=== PATIENT | male | born 1975 | race Caucasian/White ===

== ENCOUNTER → 2018-11-28 16:45 | Outpatient (CLI) | payer OTHER, SELFPAY ==
[2018-11-18 15:08] VITALS: BMI 20.9
--- NOTE | 2018-11-28 17:06 | MRI_ITS ---
STUDY: MRI LEFT KNEE REASON FOR EXAM: Male, 43 years old. Pain. Fall. TECHNIQUE: Standardized fat and water weighted pulse sequences were obtained in all 3 orthogonal planes. COMPARISON: None. FINDINGS: Normal medial meniscus. Normal hyaline cartilage of the medial femorotibial compartment. Normal medial femoral condyle and tibial plateau. Normal medial collateral ligamentous complex (MCL). Normal distal semimembranosus, gracilis and semitendinosus tendons. Normal lateral meniscus. Normal hyaline cartilage of the lateral femorotibial compartment. Normal lateral femoral condyle and tibial plateau. Normal proximal tibiofibular articulation. Normal lateral collateral (fibular) ligament. Normal popliteus tendon. Normal biceps femoris tendon. Normal anterior cruciate ligament (ACL). Normal posterior cruciate ligament (PCL). Normal congruent patellofemoral articulation. Normal hyaline cartilage of the patellofemoral compartment. Normal medial and lateral patellar retinaculum. Normal quadriceps tendon. Normal patellar tendon. Normal Hoffa's fat pad. There is no joint effusion. The soft tissues are unremarkable. The otherwise visualized osseous structures are unremarkable. MRI/Lower Ext Joint Only (Routine) IMPRESSION: Normal MRI of the knee. No ligamentous or meniscal tear. Electronically Signed: Raymon Powell MD at 9:01 EDT , Service support ,
== END ==
PROVIDERS: Referring Provider Physician Assistant Surgical; Visit Provider Physician Assistant Surgical
DX: S83.92XA Sprain of unspecified site of left knee, initial encounter (principal); X58.XXXA Exposure to other specified factors, initial encounter; Y93.9 Activity, unspecified; Y92.9 Unspecified place or not applicable; Y99.9 Unspecified external cause status
CPT/HCPCS: 73721

== ENCOUNTER → 2023-02-17 | Outpatient (CLI) | payer OTHER, SELFPAY ==
--- NOTE | 2023-02-17 | MRI_ITS ---
EXAM: MR RIGHT LOWER EXTREMITY WITHOUT INTRAVENOUS CONTRAST, KNEE CLINICAL INDICATION: contusion rt knee, pain, and quot;clicking and quot; TECHNIQUE: Multiplanar and multisequence MR images of the right knee without intravenous contrast. COMPARISON: No relevant prior studies available. FINDINGS: BONES/JOINTS: Anterior lateral tibial plateau edema with thin linear hypointense T1 signal at the medial margin of the lateral tibial plateau perhaps an indicating severe contusion and/or microtrabecular fracture. No synovial hypertrophy. No intra-articular body. EXTENSOR MECHANISM: No significant abnormality. MEDIAL MENISCUS: No significant abnormality. LATERAL MENISCUS: No significant abnormality. MEDIAL CAPSULE/SUPPORTING STRUCTURES: No significant abnormality. Intact. LATERAL CAPSULE/SUPPORTING STRUCTURES: No significant abnormality. Lateral collateral ligamentous complex, inclusive of the popliteal tendon, are intact. ANTERIOR CRUCIATE LIGAMENT: No significant abnormality. Intact. POSTERIOR CRUCIATE LIGAMENT: No significant abnormality. Intact. MUSCLES: No significant abnormality. CARTILAGE: No significant abnormality. Intact. FLUID: No significant abnormality. No joint effusion. OTHER SOFT TISSUES: Mild anterior soft tissue swelling. No popliteal cyst. MRI/Lower Ext Joint Only (Routine) IMPRESSION: 1. Anterior lateral tibial plateau edema with thin linear hypointense T1 signal at the medial margin of the lateral tibial plateau perhaps an indicating severe contusion and/or microtrabecular fracture. Correlate with mechanism of injury. 2. Mild anterior soft tissue swelling. No additional acute abnormality is identified. Electronically Signed: Guido Jorgensen DO at 10:10 EDT ,
== END | disposition home or self-care (01) ==
LOC: MRI 09:00
PROVIDERS: Referring Provider Physician Assistant Surgical; Visit Provider Physician Assistant Surgical
DX: S80.01XA Contusion of right knee, initial encounter (principal); X58.XXXA Exposure to other specified factors, initial encounter
CPT/HCPCS: 73721

== ENCOUNTER → 2023-06-07 | Outpatient (CLI) | payer OTHER, SELFPAY ==
[2023-06-07 09:23] LABS: Bacteria 0 SEEN /hpf (None Seen); Mucous, Urine 0 SEEN /hpf (<or=2+); Red Blood Cells-Urine 0 SEEN /hpf (0-5); Squamous Epithelial Cells - UA 0 SEEN /hpf (0-5); White Blood Cells 0 SEEN /hpf (0-5)
[2023-06-07 10:03] LABS: Color, Urine Yellow (Yellow); Glucose, Dipstick Normal (Normal); Ketone-Dipstick Negative (Negative); Leukocyte Esterase-Dipstick Negative /ul (Negative); Nitrite-Dipstick Negative (Negative); Occult Blood-Urine Negative /ul (Negative); Protein-Dipstick Negative (Negative); Specific Gravity, Urine 1.015 (1.002-1.030); Urine Bilirubin Dipstick Negative (Negative); Urine Clarity Clear (Clear); Urine Urobilinogen Normal (Normal)
[2023-06-07 10:11] LABS: Absolute Lymphocyte Count 2.53 X10^3/uL (0.83-4.51); Absolute Neutrophil Count 4.2 X10^3/uL (2.0-7.7); Basophil# 0.05 X10^3/uL; Basophil% 0.6 % (0-1); Eosinophil# 0.69 X10^3/uL; Eosinophils% 8.4 % (0-5); Hematocrit 47.4 % (40-54); Hemoglobin 15.5 g/dL (13.0-16.5); Lymphocyte # 2.53 X10^3/ul (0.83-4.51); Lymphocyte % 30.8 % (19-41); Mean Corp Hgb Conc 32.7 g/dL (32-36); Mean Corpuscular Hgb 30.3 pg (27.0-32.0); Mean Corpuscular Volume 92.8 fL (80-94); Mean Platelet Vol. 11.8 fl (6.2-12.0); Monocyte# 0.69 X10^3/uL; Monocyte% 8.4 % (0-10); NRBC Flagged by Analyzer 0 % (0-5); Neutrophil # 4.22 X10^3/uL (2.7-7.7); Neutrophil % 51.4 % (47-70); Platelet Count 279 K/mm3 (150-450); RBC Distribution Width CV 12.7 % (11.6-14.6); RBC Distribution Width SD 43.6 fl (35.1-43.9); Red Blood Count 5.11 M/mm3 (4.6-6.2); White Blood Count 8.2 K/mm3 (4.4-11.0)
[2023-06-07 10:41] LABS: ALB/GLOB Ratio 1.2 RATIO (0.9-2.4); AST(SGOT) 16 U/L (15-37); Alanine Aminotransfer ALT/SGPT 25 U/L (16-61); Albumin, Serum 3.8 g/dL (3.2-5.0); Alkaline Phosphatase 63 U/L (45-117); Anion Gap 3 (5-15); BUN 11 mg/dL (7-18); BUN/Creat Ratio 11.9 RATIO (10-20); Calcium,Total 9.3 mg/dL (8.5-10.1); Chloride 108 mmol/L (98-107); Cholesterol 166 mg/dL (200); Creatinine, Serum 0.92 mg/dL (0.70-1.30); EST Glomerular Filtration Rate 93 mL/min (>60); Est Glom Filt Rate - Afr Amer 113 mL/min (>60); Globulin 3.1 g/dL (2.2-4.2); Glucose 83 mg/dL (74-106); High Density Lipoprotein 41 mg/dL; Potassium 3.9 mmol/L (3.5-5.1); Protein, Total 6.9 g/dL (6.4-8.2); Sodium Level 140 mmol/L (136-145); Thyroid Stim Hormone (TSH) 1.37 uIU/mL (0.358-3.74); Triglycerides 103 mg/dL; Very Low Density Lipoprotein 21 mg/dL (5-40)
[2023-06-08 15:08] LABS: Thyroglobulin Antibody < 1.0 IU/mL (0.0-0.9); Thyroid Peroxidase AB < 9 IU/mL (0-34)
== END | disposition home or self-care (01) ==
LOC: MFPLAB 09:20
PROVIDERS: Visit Provider Family Medicine
DX: E04.1 Nontoxic single thyroid nodule (principal)
CPT/HCPCS: 36415; 80053; 80061; 81001; 84439; 84443; 85025; 86376; 86800

== ENCOUNTER → 2023-06-08 | Outpatient (CLI) | payer OTHER, SELFPAY ==
--- NOTE | 2023-06-08 15:17 | US_ITS ---
INDICATION: nodule EXAMINATION: Ultrasound US Thyroid (eg thyroid, parathyroid, parotid) TECHNIQUE: Toussaint scale and color doppler imaging was performed of the thyroid gland. COMPARISON: No relevant prior comparison study available FINDINGS: RIGHT THYROID LOBE: 5.1 x 1.6 x 1.5 cm, volume 6.1 mL. Parenchyma: The gland echotexture is homogenous. Thyroid vascularity is normal. LEFT THYROID LOBE: 4.8 x 1.5 x 1.3 cm, volume 4.8 mL. Parenchyma: The gland echotexture is homogenous. Thyroid vascularity is normal. ISTHMUS: 0.2 cm in maximum AP dimension. Estimated total number of nodules greater than equal to 1 cm: 1. Multiple subcentimeter colloid cysts seen in the left lobe. Vineyard Tender nodules are described as follows: 1. Location: Right lower Size: 1.1 x 1 x 0.7 cm, volume 0.4 mL. Nodule characteristics: Composition: Cystic or almost completely cystic (0). There is a peripheral calcification present. Echogenicity: Anechoic (0). ACR TI-RADS total points: 0. ACR TI-RADS category: 1. LYMPH NODES: No lymphadenopathy is seen in the tissue surrounding the thyroid gland. US/Head/Neck Soft Tissue IMPRESSION: Right thyroid lobe cyst with associated calcification. No specific follow-up recommended. ACR TI-RADS RECOMMENDATION REFERENCE: Ultrasound-guided fine-needle aspiration, follow-up ultrasound, no further follow-up. *TR 1 (0 points) and TR 2 (2 points): No FNA or follow-up. *TR 3 (3 points): FNA if more than or equal to 2.5 cm in maximum dimension. Follow-up ultrasound in 1, 3, and 5 years if 1.5 to 2.4 cm in maximum dimension. *TR 4 (4-6 points): FNA if more than or equal to 1.5 cm in maximum dimension. Follow-up ultrasound in 1, 2, 3, and 5 years if 1 to 1.4 cm in maximum dimension. *TR 5 (more than or equal to 7 points): FNA if more than or equal to 1 cm in maximum dimension. Follow-up ultrasound every year for 5 years if 0.5 to 0.9 cm in maximum dimension. *TR 3, TR 4, or TR 5 nodules that are below the size threshold for follow-up receive no follow-up. Electronically Signed: Milind Messer MD at 0:41 EST ,
== END | disposition home or self-care (01) ==
LOC: US 15:16
PROVIDERS: PCP Family Medicine; Referring Provider Family Medicine; Visit Provider Family Medicine
DX: E04.1 Nontoxic single thyroid nodule (principal)
CPT/HCPCS: 76536

== ENCOUNTER → 2024-01-15 | Outpatient (CLI) | payer OTHER, SELFPAY ==
--- NOTE | 2024-01-15 10:45 | LES_PTH ---
PATIENT: MARCI JACOB LOC: [facility] U#:[id number] AGE/SX: 48/M ROOM: RE01/15/[address]: Dr. Maxim Payan MD : 1975 BED: DIS: 01/15/2024 SPEC #: [id number] RECD: 01/16/24 07:18 STATUS: SCARLET MARIANO #: [id number] DEBBIE: 01/15/24 10:[address]: Maxim Payan DEPT: SURGICAL PATHOLOGY RECD BY: Yasmeen Juarez ENTERED: 01/16/24 07:19 SP TYPE: Lesion OTHR DR: Dr. 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 Negative for malignancy. See comment. / 01/17/2024 COMMENT Special stain for fungi is positive for organisms (yeast and pseudohyphae), consistent with Amber species; matched controls is appropriate. Clinical correlation and appropriate follow up are necessary. Case has been reviewed in consultation with Dr. Horan who concurs with the above diagnosis. IDC:AM MICROSCOPIC DESCRIPTION Slides are reviewed. GROSS DESCRIPTION Received in fixative is one container labeled with the patient's name and designated Left buccal leukoplakia. The specimen consists of a piece of sanchez-brown mucosal tissue measuring 0.2 x 0.1 x 0.1cm. The entire specimen is submitted in one cassette. [facility] 01/16/2024 TC:3 CPT:37397,99216
== END | disposition home or self-care (01) ==
LOC: LABSPEC 15:24
PROVIDERS: PCP Family Medicine; Referring Provider Otolaryngology; Visit Provider Otolaryngology
DX: K13.21 Leukoplakia of oral mucosa, including tongue (principal)
CPT/HCPCS: 88305

== ENCOUNTER → 2024-03-03 | Outpatient (CLI) | payer OTHER, SELFPAY ==
--- NOTE | 2024-03-03 08:24 | MRI_ITS ---
EXAM: MR RIGHT LOWER EXTREMITY WITHOUT INTRAVENOUS CONTRAST, KNEE CLINICAL INDICATION: pain, INJURY X 1YR TECHNIQUE: Multiplanar and multisequence MR images of the right knee without intravenous contrast. COMPARISON: February 17, 2023 and February 04, 2024 FINDINGS: BONES/JOINTS: Unremarkable. No fracture. No abnormal bone marrow signal. No synovial hypertrophy. No intra-articular body. EXTENSOR MECHANISM: Unremarkable. MEDIAL MENISCUS: Unremarkable. LATERAL MENISCUS: Unremarkable. MEDIAL CAPSULE/SUPPORTING STRUCTURES: Unremarkable. Intact. LATERAL CAPSULE/SUPPORTING STRUCTURES: Unremarkable. Lateral collateral ligamentous complex, inclusive of the popliteal tendon, are intact. ANTERIOR CRUCIATE LIGAMENT: Unremarkable. Intact. POSTERIOR CRUCIATE LIGAMENT: Unremarkable. Intact. MUSCLES: Unremarkable. CARTILAGE: Unremarkable. Intact. FLUID: Unremarkable. No joint effusion. OTHER SOFT TISSUES: Unremarkable. No popliteal cyst. MRI/Lower Ext Joint Only (Routine) IMPRESSION: No significant internal derangement of the knee. Electronically Signed: Deshawn Lee MD at 21:27 EDT ,
== END | disposition home or self-care (01) ==
LOC: MRI 14:09
PROVIDERS: PCP Family Medicine; Referring Provider Orthopaedic Surgery Sports Medicine; Visit Provider Orthopaedic Surgery Sports Medicine
DX: M25.561 Pain in right knee (principal)
CPT/HCPCS: 73721

== ENCOUNTER 2024-05-17 21:30 | Emergency (ER) | payer OTHER, SELFPAY ==
[2024-05-17 21:31] VITALS: BP 126/84; PULSE 89; RESP 18; TEMP 36.5; O2SAT 98; BMI 23.4
--- NOTE | 2024-05-17 22:28 | EX.ED.DYSGE1 ---
HPI History of Present Illness Chief Complaint: Head Injury Informant: patient and spouse/S.O. Narrative Narrative: Patient is a 49-year-old male with no significant past medical history. He states he he struck the left side of his head on a post that he was trying to put on the ground using a post acute care nurse practitioner. He denied any loss of consciousness following the trauma and he denies any history of bleeding disorder or blood thinner use. He states that there is been no real headache change in vision light sensitivity or nausea and vomiting since the trauma. He reports he went to an outside ER where they updated his tetanus and just glued the area. He states he still has had some mild intermittent bleeding and secondary to this comes in for evaluation [facility] Medical History Right knee pain Hordeolum externum left lower eyelid Contact with and (suspected) exposure to other viral communicable diseases URI (upper respiratory infection) Home Medications ?Medication ?Instructions ?Recorded ?Last Taken ?Type fexofenadine 180 mg tablet 180 mg PO Q24H #30 tabs 10/29/17 Unknown Rx ([facility]le Allergy) sulfamethoxazole 800 1 tab PO BID 7 days #14 tabs 05/17/24 Unknown Rx mg-trimethoprim 160 mg tablet (Bactrim DS) Allergy/AdvReac Type Severity Reaction Status Date / Time amoxicillin (From Augmentin) Allergy Upset Verified 05/17/24 21:30 Stomach clavulanic acid (From Allergy Upset Verified 05/17/24 21:30 Augmentin) Stomach Social History Smoking Status: Current every day smoker tobacco type: cigarettes ROS ROS ED Constitutional Constitutional ED: Denies chills or fever(s) Eyes Eyes: Denies blurry vision, change in vision or diplopia ENT ENT ED: Denies sore throat Cardiovascular Cardiovascular: Denies chest pain Respiratory/Chest Respiratory/Chest: Denies cough or dyspnea Gastrointestinal Gastrointestinal: Denies abdominal pain, diarrhea, nausea or vomiting Genitourinary Genitourinary ED: Denies dysuria Musculoskeletal Musculoskeletal: Denies neck pain Integumentary Reports other Details: Positive scalp laceration Neurologic Neurologic: Denies headache(s), paresthesias or weakness Hematologic/Lymphatic Hematologic/Lymphatic: Denies easy bleeding or easy bruising EXAM Physical Exam Const Vital Signs: 05/17/24 21:31 05/17/24 21:58 Temperature 97.7 F L Temperature Source Temporal Pulse Rate 89 Respiratory Rate 18 Respiratory Effort Normal Non-Labored Respiratory Depth Normal Respiratory Pattern Normal Blood Pressure 126/84 H Blood Pressure Mean 98 Pulse Ox 98 Oxygen Delivery Method Room Air Room Air Positive well nourished and well developed General Appearance ED: well developed HEENT HEENT Narrative: Patient has an apparent 2.5 cm linear left parietal scalp laceration covered in Dermabond consistent with his report from earlier. There is a trace amount of blood protruding from the anterior aspect. Otherwise no signs of depressed or basilar skull fracture Eyes PERRL and EOMs intact bilaterally Eyes Narrative: No hyphema Neck supple Neck Narrative: No bony deformity or step-off of the cervical spine no midline tenderness to palpation Resp normal respiratory effort and clear to auscultation bilaterally Cardio regular rate and regular rhythm Extremity normal to inspection Neuro oriented x3, CN's II-XII intact bilaterally and no sensory deficits noted Sensorium / Orientation: alert Motor Exam: strength 5/5 throughout Psych mental status grossly normal Skin Skin Narrative: Scalp laceration as documented above No surrounding erythema or warmth no lymphangitic streaking or purulent discharge noted from the laceration MDM MDM MDM Narrative Medical decision making narrative: Patient arrived to the ER roughly 10 hours after the time of trauma. He had already been seen in another emergency department and had the wound Dermabond and his tetanus status was updated. He does not have a history of bleeding disorder or blood thinner use he is not complaining of change in vision headache light sensitivity nausea vomiting and states has been no change in mental status. Therefore my concern for underlying concussion versus traumatic skull fracture versus traumatic subarachnoid or subdural hemorrhage is low. I did discuss potential head CT with the patient and spouse but with are low concern for underlying trauma to the do not want a image obtained. The patient had the small amount of blood removed using a wash rag and chlorhexidine. After the small amount of blood from the anterior aspect of the wound was removed there is no further bleeding. I discussed with patient that I typically would have put naina into the scalp but as the wound is already been covered with Dermabond I do not feel it appropriate to try and remove this as it would cause undue pain and repeat bleeding. As the wound is not continuing to ooze blood from the small amount that was removed in the ER and we have low concern for underlying trauma or infection there is no need for further workup and he is otherwise safe for discharge History & Record Review Discussion w/independent historian: Patient and Significant other Discharge Plan Triage Chief Complaint: Head Injury ED Provider: Deshawn Kowalski Dx/Rx/DC Orders Clinical Impression: Laceration of scalp, Head injury Instructions: ED Head Injury (Adult), ED Laceration, Skin Adhesive Prescriptions: New sulfamethoxazole-trimethoprim [Bactrim DS] 800-160 mg tablet 1 tab PO BID 7 Days Qty: 14 0RF No Action fexofenadine [Danielle Allergy] 180 mg tablet 180 mg PO Q24H Qty: 30 6RF Primary Care Provider: Raymundo Smalls Referrals: Raymundo Smalls MD [Primary Care Provider] - Activity Restrictions/Additional Instructions: If you develop intractable headache bouts of nausea and vomiting or change in mental status then you will need to return to the hospital for repeat evaluation and head CT. If you develop surrounding redness or purulent discharge there is concern for infection then you may need to fill and take the Bactrim which was prescribed from the ER tonight. If you have any further concerns or worsening symptoms please return to the ER for repeat evaluation Print Language: Micronesian Disposition Disposition: Home, Self Care Discharge Date/Time: 05/17/24 22:38
== END 2024-05-17 22:38 | disposition home or self-care (01) ==
PROVIDERS: Emergency Provider Emergency Medicine; PCP Family Medicine; Visit Provider Emergency Medicine
DX: S01.01XA Laceration without foreign body of scalp, initial encounter (principal); W22.09XA Striking against other stationary object, initial encounter; F17.210 Nicotine dependence, cigarettes, uncomplicated
CPT/HCPCS: 99283

== ENCOUNTER → 2024-10-23 | Outpatient (CLI) | payer OTHER, SELFPAY ==
--- NOTE | 2024-10-23 10:09 | RAD_ITS ---
PROCEDURE: KNEE 4 OR MORE VIEWS 10/23/2024 REASON FOR EXAM: RIGHT KNEE STRAIN TECHNIQUE: 4 view(s) of the right knee knee COMPARISON: Right knee series of 02/04/2024. RAD/Knee 4 or More Views IMPRESSION: No right knee joint effusion is seen. No significant arthritic process or joint narrowing is evident. Satisfactory o sseous alignment is seen throughout. No fracture site is evident. Reading Location: [place] [id number]
== END | disposition home or self-care (01) ==
LOC: MTRAD 10:08
PROVIDERS: PCP Family Medicine; Referring Provider Physician Assistant Surgical; Visit Provider Physician Assistant Surgical
DX: S86.911A Strain of unspecified muscle(s) and tendon(s) at lower leg level, right leg, initial encounter (principal)
CPT/HCPCS: 73564

== ENCOUNTER → 2024-11-04 | Outpatient (CLI) | payer OTHER, SELFPAY ==
--- NOTE | 2024-11-04 10:22 | MRI_ITS ---
PROCEDURE: LOWER EXT JOINT ONLY (ROUTINE) 11/04/2024 REASON FOR EXAM: PAIN TECHNIQUE: T1, T2, PD, MRI of the right knee. Multiplanar and multisequence images were obtained without IV contrast administration. COMPARISON: COMPARISON : October 23, 2024 x-ray FINDINGS: Anterior and posterior cruciate ligaments appear intact. The medial and lateral collateral ligament appear intact. The popliteus tendon, biceps femoris, and ileotibial band are normal. There is no focal bony contusion or osteochondral defect identified. No tear is seen in the medial or lateral meniscus. The patellofemoral articulation appears intact. The distal quadriceps and patellar tendons are normal in appearance. There is no focal chondromalacia. There is no significant joint effusion or popliteal cyst. MRI/Lower Ext Joint Only (Routine) IMPRESSION: Negative MRI of the right knee without contrast. [facility]
== END | disposition home or self-care (01) ==
LOC: OPMRI 10:12
PROVIDERS: PCP Family Medicine; Referring Provider Physician Assistant Surgical; Visit Provider Physician Assistant Surgical
DX: S86.911A Strain of unspecified muscle(s) and tendon(s) at lower leg level, right leg, initial encounter (principal); X58.XXXA Exposure to other specified factors, initial encounter
CPT/HCPCS: 73721